=== PATIENT | female | born 1955 | race Caucasian/White ===

== ENCOUNTER 2024-09-18 12:29 | Emergency (ER) | payer OTHER, SELFPAY ==
[2024-09-18 12:34] VITALS: BP 117/79
--- NOTE | 2024-09-18 13:17 | ED.GENMED ---
History of Present Illness
General
Chief Complaint: Crisis Evaluation
Source: patient
Exam Limitations: none
Time Seen by Provider: 09/18/24 13:09
History of Present Illness
History of Present Illness:
See MDM
Past History
Past History
ED Past Medical History: Psychiatric and Other (colitis)
Social History
Tobacco: Non-smoker
Alcohol: None
Phy Exam
Physical Exam
Physical Exam:
See MDM
Course
Orders/Labs/Results
Orders:
Orders
09/18/24 12:37
Crisis Consult Urgent
Reason for Consult: increased depression
Vital Signs
Initial and Last Documented VS:
Initial Vital Signs
Temp Pulse Resp BP Pulse Ox
98.4 F 107 18 117/79 94
09/18/24 12:34 09/18/24 12:34 09/18/24 12:34 09/18/24 12:34 09/18/24 12:34
Last Documented Vital Signs
Temp Pulse Resp BP Pulse Ox
98.4 F 107 18 117/79 94
09/18/24 12:34 09/18/24 12:34 09/18/24 12:34 09/18/24 12:34 09/18/24 12:34
MDM/Problems Addressed
Differential Diagnosis Includes:
HPI and MDM Narrative:
69-year-old female presenting for increased depression. She was recently discharged from [facility] for major depression. She has been compliant with her 15 mg Remeron daily but states her symptoms are coming back. Patient
believes that Remeron needs to be increased. She states this was her initial plan with her and her psychiatrist. Patient is under a lot of stress in regards to her intermittent stercoral colitis. She has follow-up with colorectal surgery in a few
weeks but believes this is not quick enough. She wants to speak to crisis to discuss outpatient versus inpatient options. She denies any suicidal homicidal thoughts. She is otherwise well-appearing and nontoxic.
Will reach out to psychiatry in regards to her Remeron dosing
Will give referral to follow-up with colorectal surgeon
Physical exam
General: Well appearing and non-toxic
HEENT: protecting airway
Neck: appears supple
CV: No evidence of cyanosis
Resp: No accessory muscle use
Abd: Non-distended
Extremities: No deformities
Neuro: alert
Psych: Mildly depressed affect
Skin: Intact
Problems Addressed including Acute and Chronic Conditions affecting care:
1. Depression
Acuity: acute
Prognosis: stable
Details: Will have crisis evaluate and will discuss case with psychiatry in regards to her Remeron dosing
Updates
Case discussed with psychiatry who suggested that she follow-up with her psychiatrist to discuss changes. Patient is comfortable this plan and feels comfortable going home. Crisis did evaluate and there appears to be no reason to place her on a
302 and to force inpatient psychiatric care.
Differential Diagnosis (but not limited to): Depression, medication noncompliance
Testing considered: EKG
Drug therapy (if applicable): OTC meds, please see d/c instruction regarding Rx drugs
Amount and/or Complexity of Data Reviewed
Clinical info obtained from: Patient
External data reviewed: N/A
Labs I independently reviewed (but not limited to): N/A
Radiology: N/A
Pulse Ox: not hypoxic
EKG independently reviewed: N/A
[employer] Internship: N/A
Critical Care: N/A
Risk of Complication:
Social Determinants of health: Good social support
Discussed with other providers: Crisis
Escalation of Care includes Admit/Obs: After being observed in the Emergency Department, pt stable for discharge.
Occasional wrong word or 'sound a like' substitutions may have occurred due to the inherent limitations of voice recognition software. Read the chart carefully and recognize, using context, where substitutions have occurred.
*Critical Care Note
Total Time (30-74mins, 75-104mins- exclusive of procedures): Not Applicable
ED Attending Note
-
Portions of this chart may have been created with voice recognition software.� Occasional wrong word or��sound alike� substitutions may have occurred due to the inherent limitations of voice recognition software.
Discharge Plan
Departure
Patient Disposition: Home (Routine Discharge)
Date of Disposition: 09/18/24
Time of Disposition: 14:38
Patient with high blood pressure during this ER visit?: No
Discharge Problem:
Depression
Instructions: Depression, Adult (DC)
Referrals:
Andrew Wallcae MD [Active] -
Activity Restrictions/Additional Instructions:
The psychiatrist recommended that you call Dr. Hurtado to discuss medication changes.
Please call the colorectal surgeon to evaluate your prior history of stercoral colitis.
Please return for any worsening symptoms.
You may return at any time if you have further concerns.
Please follow up with your doctor at the first available appointment, preferably this week.
Thank you for choosing [facility].
Interventions
Interventions:
*Risk Screen - Suicide Last Done: 09/18/24 12:30
*General Assessment Last Done: 09/18/24 12:34
*Neglect/Abuse Screening Last Done: 09/18/24 12:34
ED-Psychological Assessment Last Done: 09/18/24 13:05
Discharge Date and Time
Print Language: DIVEHI
== END 2024-09-18 15:11 | disposition home or self-care (01) ==
LOC: EMR 12:29
PROVIDERS: EMERGENCY PHYSICIAN Student in an Organized Health Care Education/Training Program
DX: F32.A Depression, unspecified (principal)
CPT/HCPCS: 99282